=== PATIENT | female | born 1995 ===

== ENCOUNTER 2017-06-08 16:22 | Emergency (ER) | payer BC ==
[2017-06-08 16:33] VITALS: RESP 16; TEMP 98.2
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
[2017-06-08 17:49] VITALS: BP 101/66; PULSE 76
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
[2017-06-08 19:50] VITALS: O2SAT 99
== END 2017-06-08 17:49 | disposition home or self-care (01) ==
LOC: C.ER 16:22
DX: S20.211A Contusion of right front wall of thorax, initial encounter (principal); S40.011A Contusion of right shoulder, initial encounter; S20.311A Abrasion of right front wall of thorax, initial encounter; S40.211A Abrasion of right shoulder, initial encounter; S60.811A Abrasion of right wrist, initial encounter; S60.511A Abrasion of right hand, initial encounter; V89.1XXA Person injured in unspecified nonmotor-vehicle accident, nontraffic, initial encounter